=== PATIENT | male | born 1990 | race Caucasian/White ===

== ENCOUNTER 2021-05-06 08:13 | Emergency (ER) | payer BC, OTHER ==
[~2021-05-06] VITALS: Ht 177.8 cm; Wt 200.0 kg
[2021-05-06] MEDS ORDERED: ONDANSETRON PF 4 MG/2 ML VIAL. IVP ONE (08:30)
[2021-05-06] MEDS ORDERED: IV NORMAL SALINE 1,000ML 1,000 ML IV ONE (08:30)
--- NOTE | 2021-05-06 08:38 | PHYS DOC ---
Past History Past Medical History: Asthma Past Surgical History: No Surgical History Alcohol Use: None Drug Use: None General Adult EDM: Chief Complaint: Vomiting, diarrhea HPI: HPI: 31-year-old male presents with vomiting and diarrhea since 2 AM. He was asleep and this woke him from his sleep. His had multiple episodes of vomiting and diarrhea. His daughter and are also ill at home but not nearly as severe. Patient feels like he is already getting dehydrated. Review of Systems: Review of Systems: Constitutional: Denies fever or chills Eyes: Denies change in visual acuity HENT: Denies nasal congestion or sore throat Respiratory: Denies cough or shortness of breath Cardiovascular: Denies chest pain or edema GI: Generalized abdominal pain. Nausea, vomiting, diarrhea : Denies dysuria Musculoskeletal: Denies back pain or joint pain Integument: Denies rash Neurologic: Denies headache, focal weakness or sensory changes Endocrine: Denies polyuria or polydipsia Lymphatic: Denies swollen glands Psychiatric: Denies depression or anxiety Current Medications: Current Meds: Current Medications Medications (Trade) Dose Ordered Sig/Vinicio Start Time Stop Time Status Last Admin Dose Admin Ondansetron HCl (Zofran) 8 mg 1X ONCE 05/06/21 08:30 05/06/21 08:31 DC Sodium Chloride 1,000 ml @ 1,000 mls/hr 1X ONCE 05/06/21 08:30 05/06/21 09:29 Allergies: Allergies: Allergies Coded Allergies Type Severity Reaction Last Updated Verified No Known Drug Allergies 11/16/15 No Physical Exam: PE: Constitutional: Well developed, well nourished, no acute distress, non-toxic appearance. [] HENT: Normocephalic, atraumatic, bilateral external ears normal, oropharynx dry, no oral exudates, nose normal. [] Eyes: PERRLA, EOMI, conjunctiva normal, no discharge. [] Neck: Normal range of motion, no tenderness, supple, no stridor. [] Cardiovascular: Heart rate regular rhythm, no murmur [] Lungs & Thorax: Bilateral breath sounds clear to auscultation [] Abdomen: Bowel sounds normal, soft, mild generalized tenderness, no masses, no pulsatile masses. [] Skin: Warm, dry, no erythema, no rash. [] Back: No tenderness, no CVA tenderness. [] Extremities: No tenderness, no cyanosis, no clubbing, ROM intact, no edema. [] Neurologic: Alert and oriented X 3, normal motor function, normal sensory function, no focal deficits noted. [] Psychologic: Affect dramatic, judgement normal, mood normal. [] EKG: EKG: [] Radiology/Procedures: Radiology/Procedures: [] Impressions: EXAM: Abdomen and pelvis CT with intravenous contrast. HISTORY: Nausea and vomiting. TECHNIQUE: Computed tomographic images of the abdomen and pelvis were obtained following the administration of intravenous contrast. Multiplanar reformatting was performed. *One or more of the following individualized dose reduction techniques were utilized for this examination: 1. Automated exposure control. 2. Adjustment of the mA and/or kV according to patient size. 3. Use of iterative reconstruction technique. COMPARISON: None. FINDINGS: Evaluation of the lower thorax demonstrates no infiltrate or pleural effusion. There is mild distal esophageal wall thickening and a small nonspecific left distal esophageal lymph nodes. No hepatic lesion is seen. The gallbladder, pancreas and adrenal glands are unremarkable. The spleen is mildly enlarged. There are tiny simple appearing renal cysts. There is no hydronephrosis. The appendix is absent. There is mild circumferential wall thickening involving loops of small bowel due to peristalsis or enteritis. There is increased colonic mural fat, a finding which can be seen as a sequela prior inflammation. There is no pericolonic fatty stranding to suggest acute colitis. There is no bowel obstruction. There is no bladder wall thickening. The aorta is normal in caliber. There is no lymph adenopathy. There is no suspicious or acute osseous finding. IMPRESSION: 1. Mild segmental circumferential wall thickening involving loops of small bowel, likely due to peristalsis or enteritis. There is no evidence of bowel obstruction. There is no convincing acute colitis. 2. Mild distal esophageal wall thickening and prominent distal paratracheal lymph node. This may be physiologic or due to esophagitis. Correlate with symptomatology. 3. Tiny simple appearing renal cysts. Follow-up is not routinely performed for simple cysts. Electronically signed by: Lisset Pinto MD (05/06/2021 11:36 AM) [facility] DICTATED AND SIGNED BY: LISSET PINTO MD DATE: 05/06/21 [id number] CC: LAVELLE CASTAÑEDA DO; PCP,UNKNOWN ~MTH0 0 Heart Score: C/O Chest Pain: N/A Risk Factors: Risk Factors: DM, Current or recent (<one month) smoker, HTN, HLP, family history of CAD, obesity. Risk Scores: Score 0 - 3: 2.5% MACE over next 6 weeks - Discharge Home Score 4 - 6: 20.3% MACE over next 6 weeks - Admit for Clinical Observation Score 7 - 10: 72.7% MACE over next 6 weeks - Early Invasive Strategies Course & Med Decision Making: Course & Med Decision Making Pertinent Labs and Imaging studies reviewed. (See chart for details) The patient has elevated white count. He appears to be hemoconcentrated. We've given him 2 L normal saline and 8 mg Zofran. He has had no further vomiting in the emergency room. His CT scan suggests enteritis. There are some incidental findings. See official read for details. This is likely a viral gastroenteritis. I will discharge the patient with Zofran and recommend rest and fluids. He is stable for discharge at this time. [] Dragon Disclaimer: Dragon Disclaimer: This electronic medical record was generated, in whole or in part, using a voice recognition dictation system. Departure Departure: Impression: Primary Impression: Viral gastroenteritis Disposition: HOME / SELF CARE / HOMELESS Condition: STABLE Referrals: PCP,UNKNOWN (PCP) Patient Instructions: Viral Gastroenteritis, [id number] Scripts Ondansetron (ONDANSETRON ODT) 4 Mg Tab.rapdis 1 TAB PO PRN Q6-8HRS PRN for VOMITING, #16 TAB Prov: LAVELLE CASTAÑEDA DO 05/06/21 LAVELLE CASTAÑEDA DO May 06, 2021 08:38
[2021-05-06 09:17] LABS: BASO # 0.1 x10^3/uL (0.0-0.2); BASO % 0 % (0-3); EOS % 0 % (0-3); HEMATOCRIT 55.8 % (39.0-53.0); HEMOGLOBIN 18.5 g/dL (13.0-17.5); LYMPH # 0.7 x10^3/uL (1.0-4.8); LYMPH % 3 % (24-48); MEAN CORPUSCULAR HEMOGLOBIN 29 pg (25-35); MEAN CORPUSCULAR HGB CONC 33 g/dL (31-37); MEAN CORPUSCULAR VOLUME 88 fL (79-100); MONO # 1.5 x10^3/uL (0.0-1.1); MONO % 6 % (0-9); NEUT # 21.5 x10^3uL (1.8-7.7); NEUT % 90 % (31-73); PLATELET COUNT 254 x10^3/uL (140-400); RED BLOOD COUNT 6.36 x10^6/uL (4.30-5.70); RED CELL DISTRIBUTION WIDTH 13.8 % (11.5-14.5); WHITE BLOOD COUNT 23.9 x10^3/uL (4.0-11.0)
[2021-05-06 10:22] LABS: CALCIUM 9.5 mg/dL (8.5-10.1); CREATININE 1.1 mg/dL (0.7-1.3); GFR 78.6; POTASSIUM 5.4 mmol/L (3.5-5.1)
[2021-05-06 10:30] LABS: ALBUMIN 4.9 g/dL (3.4-5.0); ALBUMIN/GLOBULIN RATIO 1.6 (1.0-1.7); TOTAL BILIRUBIN 3.3 mg/dL (0.2-1.0)
[2021-05-06 10:44] LABS: % ATYL 1 % (0-0); % BANDS 22 % (0-9); % LYMPHS 2 % (24-48); % MONOS 4 % (0-10); % SEGS 71 % (35-66)
[2021-05-06 10:46] LABS: BURR CELLS PRESENT; TARGET CELLS OCC
[2021-05-06 10:47] LABS: PLT ESTIMATE ADEQUATE (ADEQUATE)
[2021-05-06] MEDS ORDERED: IOHEXOL 300 MG/ML 75 ML VIAL. IV ONE (11:00)
[2021-05-06 11:20] LABS: INFLUENZA A PATIENT NEGATIVE (NEGATIVE); INFLUENZA B PATIENT NEGATIVE (NEGATIVE)
--- NOTE | 2021-05-06 11:39 | RAD ---
EXAM: Abdomen and pelvis CT with intravenous contrast. HISTORY: Nausea and vomiting. TECHNIQUE: Computed tomographic images of the abdomen and pelvis were obtained following the administ ration of intravenous contrast. Multiplanar reformatting was performed. *One or more of the following individualized dose reduction techniques were utilized for this examina tion: 1. Automated exposure control. 2. Adjustment of the mA and/or kV according to patient size. 3. Use of iterative reconstruction technique. COMPARISON: None. FINDINGS: Evaluation of the lower thorax demonstrates no infiltrate or pleural effusion. There is mil d distal esophageal wall thickening and a small nonspecific left distal esophageal lymph nodes. No hepatic lesion is seen. The gallbladder, pancreas and adrenal glands are unremarkable. The spleen is mildly enlarged. There are tiny simple appearing renal cysts. There is no hydronephrosis. The appe ndix is absent. There is mild circumferential wall thickening involving loops of small bowel due to peristalsis or en teritis. There is increased colonic mural fat, a finding which can be seen as a sequela prior inflamm ation. There is no pericolonic fatty stranding to suggest acute colitis. There is no bowel obstructio n. There is no bladder wall thickening. The aorta is normal in caliber. There is no lymphadenopathy. There is no suspicious or acute osseous finding. IMPRESSION: 1. Mild segmental circumferential wall thickening involving loops of small bowel, likely due to peris talsis or enteritis. There is no evidence of bowel obstruction. There is no convincing acute colitis. 2. Mild distal esophageal wall thickening and prominent distal paratracheal lymph node. This may be p hysiologic or due to esophagitis. Correlate with symptomatology. 3. Tiny simple appearing renal cysts. Follow-up is not routinely performed for simple cysts. Electronically signed by: Lisset Pinto MD (05/06/2021 11:36 AM) [facility]
[2021-05-06] MEDS ORDERED: ONDA4TAB12 PO (12:01)
[2021-05-06 12:09] LABS: BARBITURATES NEG (NEG); BENZODIAZEPINES NEG (NEG); CANNABINOIDS NEG (NEG); COCAINE NEG (NEG); METHADONE NEG (NEG); OPIATES NEG (NEG); PHENCYCLIDINE NEG (NEG)
[2021-05-06 12:12] LABS: AMPHETAMINE/METHAMPHETAMINE NEG (NEG)
[2021-05-06 12:19] VITALS: BP 113/77
[2021-05-06 12:24] LABS: CLARITY,URINE CLEAR; COLOR,URINE YELLOW
[2021-05-06 12:25] LABS: BACTERIA,URINE 0 /HPF (0-FEW); BILIRUBIN,URINE SMALL (NEG); GLUCOSE,URINE 100 mg/dL (NEG); NITRITE,URINE NEG (NEG); RBC,URINE OCC /HPF (0-2); SQUAMOUS EPITHELIAL CELL,UR FEW /LPF; UROBILINOGEN,URINE 0.2 mg/dL (0.2 mg/dL); WBC,URINE OCC /HPF (0-4)
== END 2021-05-06 12:21 | disposition home or self-care (01) ==
LOC: ER 08:13
DX: A08.4 Viral intestinal infection, unspecified (principal); J45.909 Unspecified asthma, uncomplicated; Z20.822 Contact with and (suspected) exposure to COVID-19
CPT/HCPCS: 36415; 74177; 80053; 80307; 81001; 85007; 85025; 87428; 96361; 96374; 99285; J2405; J7030; Q9967